=== PATIENT | male | born 1950 | race Caucasian/White ===

== ENCOUNTER 2017-07-04 10:45 | Inpatient (IN) | payer OTHER ==
--- NOTE | 2017-07-14 18:43 | GHP ---
[f rep st] PREOP HISTORY AND PHYSICAL DATE OF ADMISSION: 07/15/2017 HISTORY: The patient is a 66-year-old male who presents with right hip pain. He has been having rig ht hip pain for some time now. This is aggravated by carrying or lifting objects, and his hip pain h as progressed to the point where he is limping, has some limitation of motion, and this is significan tly impacting his quality of life and activities of daily living. His x-rays show severe right hip o steoarthritis, [id number] in the weightbearing aspect of the right hip. He wishes to proceed with a total hip arthroplasty. PAST MEDICAL HISTORY: Includes hypertension, elevation of cholesterol. He does have a history of my ocardial infarction in 2000. He has no stents. ALLERGIES: He has an allergy to sulfa. PAST SURGICAL HISTORY: His surgeries include a left Achilles repair, a right knee meniscus procedure , and care of a fractured clavicle at age 11. MEDICATIONS: He is using metoprolol 12.5 mg p.o. daily, atorvastatin 40 mg p.o. daily, aspirin 81 mg p.o. daily, enalapril 20 mg p.o. daily, some eye drops, also p.r.n. Cialis. SOCIAL HISTORY: He is a nonsmoker. REVIEW OF SYSTEMS: Positive, from a cardiac standpoint, for his hypertension, history of TN, and marina vation of cholesterol. PHYSICAL EXAMINATION: GENERAL: The patient is a well-developed, well-nourished male, in no apparent distress. HEAD AND NECK: Normocephalic, atraumatic. CHEST: Clear. CARDIOVASCULAR: Regular rate and rhythm. ABDOMEN: Soft. NEUROLOGICAL: He is alert and oriented x3. EXTREMITIES: Examination of the right hip shows restriction of range of motion. Beyond 90 degrees of flexion, he has hip jean carlos n. He has very little internal rotation and only about 15 degrees of external rotation and 25 degree s of abduction. Nontender over the trochanteric bursa. His opposite hip has much better range of mo tion without pain. IMAGING: X-rays include a weightbearing AP pelvis and a frog-leg lateral. He has significant arthri tis of the right hip, essentially [id number] in the weightbearing superior aspect of the joint. Th ere is subchondral sclerosis. His left hip has mild arthritis, as well. IMPRESSION: Right hip osteoarthritis. PLAN: Procedure planned is a right total hip arthroplasty. Benefits and risks of surgery have been reviewed with the patient. He understands that the risks include infection, damage to blood vessels or nerves, failure or loosening of components and need for revision, blood clot in the leg or lungs, bleeding and need for transfusion. I have reviewed the rigorous nature of the rehabilitation. He mcfarland s signed his consent form, wishes to proceed. /[id number]/MODL
[2017-07-15] MEDS ORDERED: ROPIVACAINE 0.2% 80 MG, EPINEPHrine 0.2 MG, KETOROLAC TROMETHAMINE 30 MG in BAG 0 ML IU ONE (06:00)
[2017-07-15] MEDS ORDERED: POVIDONE-IODINE 20 ML in SODIUM CL IRRIG SOLUTION 500 ML IRR ONE (06:00)
[2017-07-15] MEDS ORDERED: TRANEXAMIC ACID 1,640 MG in NS 100 ML IV ONE (06:00)
[2017-07-15] MEDS ORDERED: DEXAMETHASONE 4 MG/ML VIAL IVP ONE (06:01)
[2017-07-15] MEDS ORDERED: FAMOTIDINE 20 MG TAB PO ONE (06:01)
[2017-07-15] MEDS ORDERED: ceFAZolin 2 GM/DEXTROSE 100 ML IV ONE (06:01)
[2017-07-15] MEDS ORDERED: ACETAMINOPHEN 325 MG TAB PO ONE (06:01)
[2017-07-15] MEDS ORDERED: LR 1,000 ML IV ONE (06:08)
[2017-07-15] MEDS ORDERED: LIDOCAINE 1% 2 ML INJ ID PRN (06:08)
[2017-07-15] MEDS ORDERED: MIDAZOLAM 2 MG/2 ML VIAL IVP ONE (07:04)
--- NOTE | 2017-07-15 07:06 | PDANEPAE ---
ANE History of Present Illness Patient presents for R LARA ANE Past Medical History - Cardiovascular History Hx Hypertension: Yes Hx Arrhythmias: No Hx Chest Pain: No Hx Coronary Artery / Peripheral Vascular Disease: Yes Hx CHF / Valvular Disease: No Hx Palpitations: No - Pulmonary History Hx COPD: No Hx Asthma/Reactive Airway Disease: No Hx Recent Upper Respiratory Infection: No Hx Oxygen in Use at Home: No Hx Sleep Apnea: No Sleep Apnea Screening Result - Last Documented: Positive - Neurologic History Hx Cerebrovascular Accident: No Hx Seizures: No Hx Dementia: No - Endocrine History Hx Diabetes: No - Renal History Hx Renal Disorders: No - Liver History Hx Hepatic Disorders: No - Neurological & Psychiatric Hx Hx Neurological and Psychiatric Disorders: No - Cancer History Hx Cancer: No - Congenital Disorder History Hx Congenital Disorders: No - GI History Hx Gastrointestinal Disorders: No - Chronic Pain History Chronic Pain: No - Surgical History Prior Surgeries: Left achilles tendon repair ANE Review of Systems Review of Systems: - Exercise capacity METS (RN): 4 METS ANE Patient History - Allergies Allergies/Adverse Reactions: Sulfa (Sulfonamide Antibiotics) Allergy (Mild, Unverified 06/02/17 10:52) Hives - Home Medications Home medications: home medication list seen and reviewed Home Medications: Aspirin [Aspirin 81mg (*)] 81 mg PO DAILY 06/02/17 [Last Taken 2 Weeks Ago ~] Atorvastatin Calcium [Lipitor 40 mg (*)] 40 mg PO DAILY 06/02/17 [Last Taken 09/18 23:00] Enalapril Maleate [Vasotec 10 MG (*)] 20 mg PO DAILY 06/02/17 [Last Taken 23:00] Glucosamine Sulfate [Glucosamine Sulfate 500 MG (*)] 2,000 mg PO DAILY 06/02/17 [Last Taken 2 Weeks Ago ~07/01/17] Latanoprost 0.005% [Xalatan 0.005% (*)] 1 drops EACHEYE DAILY 06/02/17 [Last Taken 07/14/17 23:00] Metoprolol Tartrate [Lopressor 25 mg (*)] 12.5 mg PO DAILY 06/02/17 [Last Taken 07/14/17 23:00] Cialis 06/10/17 [Last Taken Unknown] - NPO status NPO Status: no food or drink >8 hours NPO Since - Liquids (Date): 07/14/17 NPO Since - Liquids (Time): 22:30 NPO Since - Solids (Date): 07/14/17 NPO Since - Solids (Time): 21:30 - Anes Hx Anes Hx: no prior problems - Smoking Hx Smoking Status: Never smoked - Family Anes Hx Family Hx Anesthesia Complications: no ANE Labs/Vital Signs - Vital Signs Blood Pressure: 170/93 Heart Rate: 58 Respiratory Rate: 16 O2 Sat (%): 94 Height: 175.26 cm Weight: 81.647 kg ANE Physical Exam - Airway Neck exam: FROM Mallampati Score: Class 1 Mouth exam: normal dental/mouth exam - Pulmonary Pulmonary: no respiratory distress - Cardiovascular Cardiovascular: regular rate and rhythym - ASA Status ASA Status: II ANE Anesthesia Plan Anesthesia Plan: spinal (RBA discussed including BROOKS or need for GA. )
[2017-07-15] MEDS ORDERED: ceFAZolin 1 GM/5 ML SYR ONE (07:08)
[2017-07-15] MEDS ORDERED: fentaNYL 100 MCG/2 ML INJ ONE (07:10)
[2017-07-15] MEDS ORDERED: PROPOFOL/EMULSION 500 MG/50 ML BOTTLE IV ONE ×2 (07:10→08:37)
[2017-07-15] MEDS ORDERED: DEXAMETHASONE 4 MG/ML VIAL ONE (07:10)
[2017-07-15] MEDS ORDERED: ONDANSETRON 4 MG/2 ML VIAL ONE (07:10)
[2017-07-15] MEDS ORDERED: ATROPINE SULFATE 1 MG/10 ML SYR ONE (08:06)
[2017-07-15] MEDS ORDERED: OXYCODONE/APAP 5/325 TAB PO PRN (09:21)
[2017-07-15] MEDS ORDERED: HYDROmorphONE/DILAUDID 1 MG/ML INJ IVP PRN (09:21)
[2017-07-15] MEDS ORDERED: LR 500 ML IV PRN (09:21)
[2017-07-15] MEDS ORDERED: fentaNYL 100 MCG/2 ML INJ IVP PRN (09:21)
[2017-07-15] MEDS ORDERED: NALOXONE HCL 0.4 MG/ML INJ IVP PRN (09:21)
[2017-07-15] MEDS ORDERED: HYDROCODONE/APAP 5/325 TAB PO PRN (09:21)
[2017-07-15] MEDS ORDERED: ONDANSETRON 4 MG/2 ML VIAL IVP PRN ×2 (09:21→10:10)
[2017-07-15] MEDS ORDERED: KETOROLAC 30 MG/1 ML SDV IVP PRN (10:10)
[2017-07-15] MEDS ORDERED: DIPHENOXYLATE/ATROPINE LOMOTIL 1 TAB PO PRN (10:10)
[2017-07-15] MEDS ORDERED: MAGNESIUM HYDROXIDE 30 ML UDCUP PO PRN (10:10)
[2017-07-15] MEDS ORDERED: METOCLOPRAMIDE 10 MG/2 ML VIAL IVP PRN (10:10)
[2017-07-15] MEDS ORDERED: LACTULOSE 20 GM/30 ML UDCUP PO PRN (10:10)
[2017-07-15] MEDS ORDERED: ONDANSETRON DISINTEGRATING 4 MG TAB PO PRN (10:10)
[2017-07-15] MEDS ORDERED: CYCLOBENZAPRINE 10 MG TAB PO PRN (10:10)
[2017-07-15] MEDS ORDERED: BISACODYL 10 MG SUPP PR PRN (10:10)
[2017-07-15] MEDS ORDERED: TEMAZEPAM 15 MG CAP PO PRN (10:10)
[2017-07-15] MEDS ORDERED: POLYETHYLENE GLYCOL 3350 17 GM PKT PO PRN (10:10)
[2017-07-15] MEDS ORDERED: diphenhydrAMINE 25 MG CAP PO PRN (10:10)
[2017-07-15] MEDS ORDERED: PROMETHAZINE HCL 25 MG SUPPR PR PRN (10:10)
[2017-07-15] MEDS ORDERED: PROMETHAZINE HCL 25 MG/ML INJ IVP PRN (10:10)
[2017-07-15] MEDS ORDERED: TADALAFIL 20 MG PO PRN (10:16)
[2017-07-15] MEDS ORDERED: LR 1,000 ML IV SCH (10:30)
--- NOTE | 2017-07-15 10:34 | POSTANESTH ---
Post Anesthetic Evaluation Cardiovascular Status: Normal, Stable Respiratory Status: Normal, Stable Level of Consciousness/Mental Status: Can Participate in Eval Pain Control: Adequate, Prn Tx Ordered Nausea/Vomiting Control: Adequate, Prn Tx Ordered Complications Possibly Related to Anesthesia: None Noted
[2017-07-15] MEDS ORDERED: KETOROLAC 30 MG/1 ML SDV ONE (11:02)
[2017-07-15] MEDS: ACETAMINOPHEN 325 MG TAB PO SCH ×3 (13:21→23:10)
--- NOTE | 2017-07-15 13:32 | GOP ---
[f rep st] OPERATIVE REPORT DATE OF OPERATION: 07/15/2017 SURGEON: Scott Manzo MD PACKAGING OPERATOR: David Flores, [facility], LSA. ANESTHESIOLOGIST: Ernie Rueda MD PREOPERATIVE DIAGNOSIS: Right hip osteoarthritis. POSTOPERATIVE DIAGNOSIS: Right hip osteoarthritis. PROCEDURE PERFORMED: Right total hip arthroplasty. FINDINGS: SPECIMENS: Included excised bone. All counts were correct, and the patient was taken in stable condition to recovery. My surgical assi stant was a medical necessity for leg positioning and exposure. ESTIMATED BLOOD LOSS: About 40 cc, maybe 50 cc. INDICATIONS: The patient is a 66-year-old male who presents with history, exam, and x-rays consisten t with severe right hip osteoarthritis, [id number] in the weightbearing surface. He has limited mo tion and pain, and this causes him to limp, limits motion, impacts his activities of daily life. He has elected to undergo a right total hip arthroplasty. DESCRIPTION OF PROCEDURE: The patient was taken to the operating room in a seated position. A spina l anesthetic was administered by Dr. Rueda. He was then placed supine, administered IV sedation. He received 2 g of IV Ancef, also a dose of tranexamic acid. He was rolled left side down on a pegboar d, on a gel pad, with an axillary roll. All bony prominences were well padded, and the pegs were yuli lied to stabilize his pelvis for a posterior approach. The right hip and leg were prepped and draped free in the usual fashion with chlorhexidine. I used a posterior approach to the right hip with a g ently curving incision just posterior to the greater trochanter. Dissection was carried down through subcutaneous tissues. I incised through the ITB and carried this over the trochanteric bursa and in to the gluteal fascia, and the gluteal fibers were bluntly split. A Charnley retractor was placed. The hip was internally rotated. I identified the piriformis that was divided and tagged. The more d istal external rotators likewise divided and tagged with a heavy FiberWire suture. The sciatic nerve was identified and protected throughout the case. I opened the joint capsule. I placed the pin abo ve the acetabulum and a drill point in the trochanter for a predislocation measurement. The hip was then gently dislocated. I made a neck cut about 12 mm or so in length. I placed anterior and engraver pantograph ior acetabular retractors. A scalpel was used to excise degenerative labrum. I started with a 50 mm reamer, deepening the socket down to the true floor, and progressively enlarged the reaming up to a 53. A 54 trial was a good fit. I used a 54 diameter Regenerex Biomet cup with limited holes. It wa s driven into place in about 40 degrees of opening angle and about 20 to 25 degrees of anteversion. It was a good fit and did not require screw fixation, and I placed a small plug in the central hole. I placed a trial liner. I then addressed the femur. I used a retractor to elevate and expose the n lou area. The canal was entered with a box chisel, as well as an awl. I used a lateralizing reamer as well. I broached for a Taperloc standard complete stem. I started small, about a 4, and I broach ed up to a size 13, which was an excellent, tight fit. I did trial reductions, and this put me in th e right range for leg length and stability. I then irrigated the canal. I removed the trial liner a nd placed a +3 Max-Rom antioxidant-infused polyethylene liner. This snapped into place nicely. The size 13 standard Taperloc complete stem was hammered into place in appropriate 15 degrees or so of an teversion. I repeated my trial reductions. My goal was to add 4 to 5 mm of length, and I did so wit h a +6 neck. I used a ceramic head, 32 mm, and this was placed over the trunnion and hammered into p lace. The hip was reduced. The hip had excellent stability. I lengthened him, as planned, appropri ately. The hip was stable even in flexion and adduction and some internal rotation. I used antibiot ic irrigation; also a Betadine rinse. I infiltrated the tissues with a joint cocktail with ropivacai ne, epi, and Toradol. I drilled 2 holes in the posterior aspect of the greater trochanter, and I pas sed my FiberWire sutures from the capsule and the short rotators through these 2 holes, and they were independently tied, and this formed a nice soft tissue repair in the posterior capsule and joint. T he wound was dry. I did not need to place a drain. The fascia was closed with interrupted figure-of -eight sutures of 0 Mersilene, subcutaneous tissue with 2-0 Monocryl, and the skin was closed with a 3-0 running subcuticular Monoderm suture, reinforced with tissue glue, Telfa, and a large Tegaderm. There were no complications. DRAINS: No drains. SUMMARY OF COMPONENTS: This is a Biomet total hip system. The acetabulum is a Regenerex 54, the jacqueline er is a +3 antioxidant-infused liner. The stem is a 13 standard complete Taperloc stem with a +6, 32 mm head. /[id number]/MODL
[2017-07-15] MEDS: ceFAZolin 2 GM/DEXTROSE 100 ML IV SCH ×2 (14:41→20:53)
[2017-07-15] MEDS: ASPIRIN 325 MG TAB PO SCH (20:49)
[2017-07-15] MEDS: FAMOTIDINE 20 MG TAB PO SCH (20:49)
[2017-07-15] MEDS: SENNOSIDES/DOCUSATE SODIUM TAB PO SCH (20:49)
[2017-07-15] MEDS: oxyCODONE IR 5 MG TAB PO PRN (20:50)
[2017-07-16 04:46] LABS: HEMATOCRIT 37.1 % (40.0-51.0); HEMOGLOBIN 12.7 g/dL (13.7-17.5)
[2017-07-16] MEDS: ACETAMINOPHEN 325 MG TAB PO SCH (05:19)
--- NOTE | 2017-07-16 08:20 | SOAPPROG ---
SOAP Progress Note Assessment/Plan: Assessment: POD#1 R LARA, pain controlled, Hct 37, dressing intact, xray ok Plan: ome today, has PT set up, asa, oxy rx Objective: Vital Signs Temp Pulse Resp BP Pulse Ox 36.8 C 52 L 16 130/65 H 92 07/16/17 04:00 07/16/17 04:00 07/16/17 04:00 07/16/17 04:00 07/16/17 04:00 Laboratory Results 07/16/17 04:32 07/15/17 07/16/17 07/17/17 05:59 05:59 05:59 Intake Total 2992 Output Total 2475 Balance 517 ICD10 Worksheet Patient Problems: Problems Problem Status Onset Osteoarthritis of right hip Acute - ICD10 Problem Qualifiers (1) Osteoarthritis of right hip
[2017-07-16] MEDS: SENNOSIDES/DOCUSATE SODIUM TAB PO SCH (08:44)
[2017-07-16] MEDS: ASPIRIN 325 MG TAB PO SCH (08:44)
[2017-07-16] MEDS: FAMOTIDINE 20 MG TAB PO SCH (08:44)
[2017-07-16] MEDS: oxyCODONE IR 5 MG TAB PO PRN (08:44)
[2017-07-16] MEDS ORDERED: ATORVASTATIN CALCIUM 40 MG TAB PO SCH (09:00)
[2017-07-16] MEDS ORDERED: METOPROLOL TARTRATE 25 MG TAB PO SCH (09:00)
[2017-07-16] MEDS ORDERED: LATANOPROST 0.005% 2.5 ML OPHT DROPS EACHEYE SCH (09:00)
[2017-07-16] MEDS ORDERED: ENALAPRIL MALEATE 10 MG TAB PO SCH (09:00)
[2017-07-16 11:29] VITALS: BP 127/68; PULSE 47; RESP 16; TEMP 97.8; O2SAT 96
--- NOTE | 2017-07-16 12:22 | ASMTCMCOM ---
CM Note CM Note Notes: Per RN, Pt. d/c'ed independently today. To have outpatient rehab. Date Signed: 07/16/2017 12:21 PM Electronically Signed By:Elizabeth Bertrand LCSW
--- NOTE | 2017-07-16 17:24 | ASDISCHSUM ---
Discharge Information Plan Status:Home with No Needs Medically Cleared to Leave: Discharge Date:07/16/2017 11:44 AM CM D/C Disposition:Home, Routine, Self-Care ADT D/C Disposition:Home, Routine, Self-Care Projected Discharge Date:07/16/2017 11:44 AM Transportation at D/C: Discharge Delay Reason: Follow-Up Date:07/16/2017 11:44 AM Discharge Slot: Final Diagnosis: Placement Information Patient Contact Information Contact Name:FARA Relationship:Life Partner Address: Work Phone: City: [facility] Phone: State/Zip Code: Email: Financial Information Financial Class:[facility] Primary Plan Desc:[employer] H[employer] OPEN [employer] LOCAL Primary Plan Number:[id number] Secondary Plan Desc: Secondary Plan Number: Assessment Information [facility] CM Progress Note CM Note CM Note Notes: Per RN, Pt. d/c'ed independently today. To have outpatient rehab. Date Signed: 07/16/2017 12:21 PM Electronically Signed By:Elizabeth Bertrand LCSW Intervention Information
== END 2017-07-16 11:44 | disposition home or self-care (01) | DRG 470 ==
LOC: F3N 07-15 05:47
PROVIDERS: ADMIT Orthopaedic Surgery; ATTEND Orthopaedic Surgery
PROC: 0SR904A Replacement of Right Hip Joint with Ceramic on Polyethylene Synthetic Substitute, Uncemented, Open Approach (ICD-10-PCS; principal; 2017-07-15 07:15)
DX: M16.11 Unilateral primary osteoarthritis, right hip (principal); I10 Essential (primary) hypertension; E78.00 Pure hypercholesterolemia, unspecified; I25.2 Old myocardial infarction
CPT/HCPCS: 97110-GP; 97116-GP; 97161-GP; 97165-GO; J0171; J0461; J0690; J1100; J1885; J2250; J2405; J2704; J2795; J3010